=== PATIENT | female | born 1970 | race Hispanic/Latino ===

== ENCOUNTER 2019-01-25 09:07 | Emergency (ER) | payer SELFPAY ==
[2019-01-25] MEDS ORDERED: Ondansetron PF 4 MG/2 ML Vial ONE (09:17)
[2019-01-25] MEDS ORDERED: Ketorolac Tromethamine 30 MG/ML VIAL ONE (09:43)
[2019-01-25 09:48] LABS: #Lymphocytes 0.9 thou/uL (1.20-3.40); #Monocytes 0.6 thou/uL (0.11-0.59); #Neutrophils 13.8 thou/uL (1.40-6.50); %Basophils 0.2 % (0.0-1.0); %Eosinophils 0.1 % (0.0-10.0); %Monocytes 3.9 % (0.0-10.0); %Neutrophils 89.9 % (42.0-75.0); Hemoglobin 14.6 g/dL (12.0-16.0); Mean Corpuscular HGB CONC 32.4 g/dL (32.0-36.0); Mean Corpuscular Hemoglobin 31.6 pg (27.0-31.0); Mean Corpuscular Volume 97.7 fL (78.0-98.0); Mean Platelet Volume 6.6 fL (7.4-10.4); Platelet Count 218 thou/uL (130-400); RBC Distribution Width 11.5 % (11.5-14.5); Red Blood Cell (RBC) Count 4.63 mill/uL (4.20-5.40); White Blood Cell (WBC) Count 15.4 thou/uL (4.8-10.8)
[2019-01-25] MEDS ORDERED: Fentanyl 100 MCG/2 ML VIAL ONE (09:57)
[2019-01-25 10:02] LABS: Bilirubin Negative (Negative); Blood, Urine Trace (Negative); Glucose, Urine (Dipstick) Negative (Negative); Leukocyte Negative (Negative); Nitrite Positive (Negative); Protein, Urine (Dipstick) Negative (Neg-Trace); Urobilinogen 0.2 mg/dL (Less than 2)
[2019-01-25 10:08] LABS: BHCG - Serum Negative (NEGATIVE); Pregs Control Bar Appear? YES (CONTROL BAR)
[2019-01-25 10:09] LABS: Clarity SL HAZY (Clear)
[2019-01-25 10:11] LABS: Bacteria/HPF 3+ HPF (None Seen); RBC/HPF 0-3 HPF (0-3); Squamous Epithelial 0-3 HPF (0-3); WBC/HPF 0-3 HPF (0-3)
[2019-01-25 10:15] LABS: ALT (SGPT) 10 U/L (8-55); AST (SGOT) 13 U/L (5-34); Albumin 4.4 g/dL (3.5-5.0); Alkaline Phosphatase 91 U/L (40-150); Anion Gap 18 mmol/L (10-20); BUN (Urea Nitrogen) 13 mg/dL (7.0-18.7); Bilirubin, Total 0.7 mg/dL (0.2-1.2); Calc. Creatinine Clearance 0 mL/min (70-130); Calcium 9.5 mg/dL (7.8-10.44); Carbon Dioxide 18 mmol/L (22-29); Chloride 104 mmol/L (98-107); Estimated GFR-MDRD 83; Glucose 101 mg/dL (70-105); Lipase 30 U/L (8-78); Potassium 3.6 mmol/L (3.5-5.1); Protein, Total 7.4 g/dL (6.0-8.3); Sodium 136 mmol/L (136-145)
[2019-01-25] MEDS ORDERED: Meropenem 500 MG VIAL ONE (10:18)
--- NOTE | 2019-01-25 10:23 | CT ---
CT STONE PROTOCOL: HISTORY:Abdominal pain COMPARISON: None DISCLAIMER: Absence of oral and IV contrast reduces the sensitivity of the exam particularly for the evaluation of solid organs and bowel. FINDINGS: The lung bases are clear. No free air or free fluid is seen in the abdomen or pelvis. No calcified ga llstones are noted. No calculi are seen in the kidneys, ureters or the urinary bladder. No hydroureteronephrosis is seen on either side. Uterus and ovaries are present. The bowel gas pattern is unremarkable. The small bowel loops are not abnormally dilated. A normal-appearing appendix is seen. 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 IMPRESSION: No CT evidence of urinary tract calculi or obstruction.
== END 2019-01-25 10:52 | disposition short-term general hospital (02) ==
LOC: NAV ERS 09:07
DX: A41.9 Sepsis, unspecified organism (principal); R10.31 Right lower quadrant pain
CPT/HCPCS: 74176; 80053; 81003; 81015; 83605; 83690; 84703; 85025; 87040; 96360; 96374; 96375; J1885; J2185; J2405; J3010